=== PATIENT | male | born 1965 | race African-American/Black ===

== ENCOUNTER 2016-07-30 17:12 | Emergency (ER) | payer OTHER ==
[2016-07-30 17:32] VITALS: BMI 20.5
--- NOTE | 2016-07-30 18:06 | PDOC ---
History of Present Illness - History of Present Illness Initial Comments: 07/30/16 18:23 Patient is a 51 year old male with significant medical hx of ETOH/cocaine use who is presenting to the ED with nausea, vomiting, abdominal pain and weakness for four days. Four days ago the patient had 24 hours of nausea and vomiting; he reports that after awhile he began vomiting blood. Since then, his nausea and vomiting has resolved but he continued to have epigastric pain and generalized weakness. Today the patient was referred to Dr. Palafox by PCP and he was then referred to the ED for generalized weakness and abdominal pain. The patient is also complaining of sore throat. Denies fever, chill, changes in urination. <Edith Parsons - Last Filed: 07/31/16 00:01> <Wendy Ascencio - Last Filed: 07/31/16 00:27> - General Chief Complaint: Vomiting Blood Stated Complaint: VOMITTING Time Seen by Provider: 07/30/16 17:56 Past History <Edith Parsons - Last Filed: 07/31/16 00:01> - Past Medical History Anemia: No Asthma: No Cancer: No Cardiac Disorders: No CVA: No COPD: No CHF: No Dementia: No Diabetes: No GI Disorders: Yes (STOMACH ULCERS) Disorders: No HTN: No Hypercholesterolemia: No Kidney Stones: No Liver Disease: No Suicide Attempt (Hx): No Seizures: No Thyroid Disease: No Other medical history: HX OF DRUG ABUSE - Surgical History Abdominal Surgery: No Appendectomy: No Cardiac Surgery: No Cholecystectomy: No Lung Surgery: No Neurologic Surgery: No Orthopedic Surgery: No - Reproductive History Testicular Surgery: No - Psycho/Social/Smoking Cessation Hx Anxiety: No Suicidal Ideation: No Smoking History: Current every day smoker Have you smoked in the past 12 months: Yes Number of Cigarettes Smoked Daily: 10 Information on smoking cessation initiated: Yes 'Breaking Loose' booklet given: 07/30/16 Hx Alcohol Use: Yes (WEEKLY) Drug/Substance Use Hx: Yes (HX OF COCCAINE) Substance Use Type: Alcohol, Cocaine Hx Substance Use Treatment: Yes <Wendy Ascencio - Last Filed: 07/31/16 00:27> - Past Medical History Allergies/Adverse Reactions: Allergies Allergy/AdvReac Type Severity Reaction Status Date / Time No Known Allergies Allergy Verified 07/30/16 17:21 Home Medications: Ambulatory Orders Omeprazole 20 mg PO DAILY #20 capsule. 07/30/16 Pantoprazole Sodium [Protonix] 40 mg PO DAILY #10 tablet. 07/30/16 Abd/GI Specific PMHX - Complaint Specific PMHX Hepatitis: No Pancreatitis: No <Wendy Ascencio - Last Filed: 07/31/16 00:27> Review of Systems - Review of Systems Comments:: 07/30/16 18:24 CONSTITUTIONAL: Present: generalized weakness Absent: fever, chills, diaphoresis, malaise, loss of appetite HEENT: Absent: rhinorrhea, nasal congestion, throat pain, throat swelling, difficulty swallowing, mouth swelling, ear pain, eye pain, visual changes CARDIOVASCULAR: Absent: chest pain, syncope, palpitations, irregular heart rate, lightheadedness , peripheral edema RESPIRATORY: Absent: cough, shortness of breath, dyspnea with exertion, orthopnea, wheezing, stridor, hemoptysis GASTROINTESTINAL: Present: epigastric pain, nausea, vomiting (with blood) Absent: abdominal distension, diarrhea, constipation, melena, hematochezia GENITOURINARY: Absent: dysuria, frequency, urgency, hesitancy, hematuria, flank pain, genital pain MUSCULOSKELETAL: Absent: myalgia, arthralgia, joint swelling SKIN: Absent: rash, itching, pallor HEMATOLOGIC/IMMUNOLOGIC: Absent: easy bleeding, easy bruising, lymphadenopathy, frequent infections ENDOCRINE: Absent: unexplained weight gain, unexplained weight loss, heat intolerance, cold intolerance NEUROLOGIC: Absent: headache, focal weakness or paresthesia, dizziness, unsteady gait, seizure, mental status changes, bladder or bowel incontinence. PSYCHIATRIC: Absent: anxiety, depression, suicidal or homicidal ideation, hallucinations <Edith Parsons - Last Filed: 07/31/16 00:01> *Physical Exam - Vital Signs Last Vital Signs Temp Pulse Resp BP Pulse Ox 98.8 F 86 18 114/74 100 07/30/16 17:23 07/30/16 17:23 07/30/16 17:23 07/30/16 17:23 07/30/16 17:23 - Physical Exam Comments: 07/31/16 00:01 GENERAL: Well developed, well nourished. Awake and alert. No acute distress. HEENT: Normocephalic, atraumatic. PERRLA, EOMI. No conjunctival pallor. Sclera are non- icteric. Moist mucous membranes. Oropharynx is clear. NECK: Supple. Full ROM. No JVD. Carotid pulses 2+ and symmetric, without bruits. No thyromegaly. No lymphadenopathy. CARDIOVASCULAR: Regular rate and rhythm. No murmurs, rubs, or gallops. Distal pulses are 2+ and symmetric. PULMONARY: No evidence of respiratory distress. Lungs clear to auscultation bilaterally. No wheezing, rales or rhonchi. ABDOMINAL: Soft. Non-tender. Non-distended. No rebound or guarding. No organomegaly. Normoactive bowel sounds. MUSCULOSKELETAL: Normal range of motion at all joints. No bony deformities or tenderness. No CVA tenderness. EXTREMITIES: No cyanosis. No clubbing. No edema. No calf tenderness. SKIN: Warm and dry. Normal capillary refill. No rashes. No jaundice. NEUROLOGICAL: Alert, awake, appropriate. Cranial nerves 2-12 intact. Normal speech. Gait is normal without ataxia. PSYCHIATRIC: Cooperative. Good eye contact. Appropriate mood and affect. <Edith Parsons - Last Filed: 07/31/16 00:01> - Vital Signs Last Vital Signs Temp Pulse Resp BP Pulse Ox 98.8 F 86 18 114/74 100 07/30/16 17:23 07/30/16 17:23 07/30/16 17:23 07/30/16 17:23 07/30/16 17:23 <Wendy Ascencio - Last Filed: 07/31/16 00:27> ED Treatment Course - LABORATORY CBC & Chemistry Diagram: 07/30/16 19:15 07/30/16 19:15 - RADIOLOGY Radiograph Interpretation: 07/30/16 20:27 Chest X-Ray Impression: No significant interval change or acute lung disease is present. Reported By: Sang Geller MD <Edith Parsons - Last Filed: 07/31/16 00:01> - LABORATORY CBC & Chemistry Diagram: 07/30/16 19:15 07/30/16 19:15 <Wendy Ascencio - Last Filed: 07/31/16 00:27> Medical Decision Making - Medical Decision Making 07/30/16 20:25 51-year-old male with a history of gastritis and alcohol use referred in from Dr. Palafox for further evaluation. He's had hematemesis on Friday. He saw Dr. Morteza Reed today who referred him to Dr. Palafox. Patient's had no melena , no diarrhea, no fever. Benign abdominal exam. He had vomited blood 4 days ago and was dizzy and weak at that time. Patient has been scheduled for colonoscopy by rescheduling cancelled multiple times. He had an ultrasound done today in Dr. Morteza rodriguez's office. Social history every day smoker. Alcohol use. Family history no gastric neoplasm , Exam was benign. No guarding, no rebound, CBC was within normal limits. Total bili was in normal limits. Electrolytes were within normal limits. Patient has had no hematemesis during his observation period emergency department, patient received IV proton aches and will be discharged with Protonix. Impression patient to follow-up Dr. Palafox if he has any further symptoms. 07/31/16 00:26 <Wendy Ascencio - Last Filed: 07/31/16 00:27> *DC/Admit/Observation/Transfer - Attestations Scribe Attestion: 07/30/16 18:26 Documentation prepared by Edith Parsons, acting as medical resident for Wendy Ascencio MD. <Edith Parsons - Last Filed: 07/31/16 00:01> <Wendy Ascencio - Last Filed: 07/31/16 00:27> Diagnosis at time of Disposition: Alcohol dependence Qualifiers: Substance use status: unspecified alcohol-induced disorder Qualified Code(s): F10.29 - Alcohol dependence with unspecified alcohol-induced disorder Hematemesis Qualifiers: Nausea presence: unspecified Qualified Code(s): K92.0 - Hematemesis - Discharge Dispostion Disposition: HOME Condition at time of disposition: Stable - Prescriptions Prescriptions: Omeprazole 20 mg PO DAILY #20 capsule. Pantoprazole Sodium [Protonix] 40 mg PO DAILY #10 tablet.dr - Referrals Referrals: Morteza Reed MD [Primary Care Provider] - - Patient Instructions Printed Discharge Instructions: DI for Vomiting -- Adult, DI for Alcoholic Gastritis Additional Instructions: please shrimp picker your medications at your pharmacy If you have worsening symptoms return to the emergency department
[2016-07-30] MEDS ORDERED: ONDANSETRON 4 MG/2 ML VIAL IVPUSH ONE (18:08)
[2016-07-30] MEDS ORDERED: SODIUM CHLORIDE 1,000 ML IV STA (18:08)
[2016-07-30] MEDS ORDERED: PANTOPRAZOLE SODIUM 40 MG in SODIUM CHLORIDE 100 ML IVPB ONE (18:10)
[2016-07-30] MEDS ORDERED: PANTOPRAZOLE SODIUM 100 ML IVPB ONE (18:27)
[2016-07-30] MEDS ORDERED: ONDANSETRON 4 MG/2 ML VIAL ONE ×2 (18:28→19:21)
[2016-07-30 19:27] LABS: BASOPHIL 0.6 % (0-2.0); EOSINOPHIL 2.6 % (0-4.5); MCHC 32.9 g/dl (32.0-35.9); MEAN CELL VOLUME 97.1 fl (80-96); MEAN PLT VOLUME 8.7 fl (7.5-11.1); NEUTROPHILS 50.8 % (42.8-82.8); PLATELET COUNT 200 K/MM3 (134-434); RDW 13.5 % (11.9-15.9); WHITE BLOOD COUNT 4.2 K/mm3 (4.0-10.0)
[2016-07-30 19:38] LABS: INR 0.99 (0.82-1.09); PROTHROMBIN TIME (PATIENT) 10.9 SEC (9.98-11.88)
[2016-07-30 19:47] LABS: ALBUMIN 3.6 g/dl (3.4-5.0); ALK PHOS 59 U/L (45-117); ANION GAP 5 (8-16); BILIRUBIN,TOTAL 0.6 mg/dL (0.2-1.0); CALCIUM 8.8 mg/dL (8.5-10.1); CO2 28 mmol/L (21-32); CREATININE 0.9 mg/dL (0.7-1.3); GLUCOSE,RANDOM 95 mg/dL (74-106); SGOT/AST 52 U/L (15-37); SGPT/ALT 54 U/L (12-78); TOT PROT 6.7 g/dl (6.4-8.2)
[2016-07-30 19:48] VITALS: BP 131/76; PULSE 73; TEMP 98.1
[2016-07-30] MEDS ORDERED: ACETAMINOPHEN 325 MG TABLET (FP) PO ONE (20:11)
[2016-07-30] MEDS ORDERED: ACETAMINOPHEN 325 MG TABLET (FP) ONE (20:17)
== END 2016-07-30 20:34 | disposition home or self-care (01) ==
LOC: JER 17:12
PROC: 3E033GC Introduction of Other Therapeutic Substance into Peripheral Vein, Percutaneous Approach (ICD-10-PCS; principal; 2016-07-30)
DX: F10.20 Alcohol dependence, uncomplicated (principal); K92.0 Hematemesis
CPT/HCPCS: 36415; 71020-TC; 80053; 85025; 85610; 86850; 86900; 86901; 96365; 96375; 99282-25

== ENCOUNTER 2016-08-28 19:29 | Emergency (ER) | payer OTHER ==
[2016-08-28 19:51] VITALS: BP 147/89; PULSE 90; TEMP 98; BMI 20.4
[2016-08-29] MEDS ORDERED: IBUPROFEN 400 MG TABLET (FP) PO ONE ×2 (00:06→00:14)
[2016-08-29] MEDS ORDERED: traMADol HCL 50 MG TABLET PO ONE (00:06)
[2016-08-29] MEDS ORDERED: traMADol HCL 50 MG TABLET ONE (00:13)
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
== END 2016-08-29 01:09 | disposition home or self-care (01) ==
LOC: JER 19:29 → JERFT 19:29 → JER 08-29 01:09
DX: F07.81 Postconcussional syndrome (principal); S09.90XA Unspecified injury of head, initial encounter; F17.210 Nicotine dependence, cigarettes, uncomplicated; W18.39XA Other fall on same level, initial encounter; Y93.89 Activity, other specified; Y92.89 Other specified places as the place of occurrence of the external cause
CPT/HCPCS: 70450-TC; 73030-TC-RT; 99281-25

== ENCOUNTER 2021-04-28 09:25 | Inpatient (IN) | payer OTHER ==
[2021-04-28 10:01] VITALS: BMI 18.3
[2021-04-28] MEDS ORDERED: ACETAMINOPHEN 325 MG TABLET (FP) PO PRN (10:45)
[2021-04-28] MEDS ORDERED: BISMUTH SUBSALICYLATE 524 MG/30 ML PO PRN (10:45)
[2021-04-28] MEDS ORDERED: diazePAM 5 MG TABLET PO PRN (10:45)
[2021-04-28] MEDS ORDERED: MENTHOL/PHENOL 1 EACH UD MM PRN (10:45)
[2021-04-28] MEDS ORDERED: MAGNESIUM HYDROX 2400MG/30ML ORAL SUSPENSION 30 ML CUP PO PRN (10:45)
[2021-04-28] MEDS ORDERED: MAGNESIUM CITRATE 300 ML BOTTLE PO PRN (10:45)
[2021-04-28] MEDS ORDERED: NICOTINE POLACRILEX 2 MG GUM BUC PRN (10:45)
[2021-04-28] MEDS ORDERED: IBUPROFEN 400 MG TABLET (FP) PO PRN (10:45)
[2021-04-28] MEDS ORDERED: MAG HYDROX/AL HYDROX/SIMETH 30 ML UNIT-DOSE CUP PO PRN (10:45)
[2021-04-28] MEDS ORDERED: NICOTINE 10 MG CARTRIDGE (INHALER) IH PRN (10:45)
[2021-04-28] MEDS ORDERED: ONDANSETRON *ODT* 4 MG TABLET SL PRN (10:45)
[2021-04-28] MEDS: diazePAM 5 MG TABLET PO SCH ×3 (11:37→22:21)
[2021-04-28] MEDS ORDERED: hydrOXYzine PAMOATE 25 MG CAPSULE (FP) PO SCH (14:00)
[2021-04-28] MEDS ORDERED: IBUPROFEN 600 MG TABLET (FP) PO PRN (16:14)
[2021-04-28] MEDS: MELATONIN 5 MG TABLETS PO SCH (22:19)
[2021-04-28] MEDS: THIAMINE HCL 100 MG TABLET (FP) PO SCH (22:19)
[2021-04-29] MEDS: diazePAM 5 MG TABLET PO SCH ×4 (05:30→22:26)
[2021-04-29] MEDS: PRENATAL VITAMINS W/ FOLIC ACID TABLET (FP) PO SCH (10:48)
[2021-04-29] MEDS: NICOTINE 21 MG/24 HOURS TOPICAL PATCH TD SCH (10:49)
[2021-04-29 13:16] LABS: HEMATOCRIT 36.6 % (35.4-49); HEMOGLOBIN 12.4 GM/dL (11.7-16.9); MCH 34.2 pg (25.7-33.7); MCHC 33.9 g/dl (32.0-35.9); MEAN CELL VOLUME 100.7 fl (80-96); MEAN PLT VOLUME 8.6 fl (7.5-11.1); PLATELET COUNT 252 10^3/uL (134-434); RBC 3.64 M/mm3 (4.00-5.60); RDW 13.9 % (11.9-15.9); WHITE BLOOD COUNT 4.5 K/mm3 (4.0-10.0)
[2021-04-29 13:29] LABS: CALCIUM 8.6 mg/dL (8.5-10.1)
[2021-04-29 13:30] LABS: ALBUMIN 3.4 g/dl (3.4-5.0); BLOOD UREA NITROGEN 18.8 mg/dL (7-18)
[2021-04-29 13:33] LABS: CREATININE 1.2 mg/dL (0.55-1.3)
[2021-04-29 13:34] LABS: BILIRUBIN,TOTAL 0.6 mg/dL (0.2-1)
[2021-04-29 14:26] LABS: HIV INTERPRETATION NEGATIVE (NEGATIVE)
[2021-04-29] MEDS: ACETAMINOPHEN 325 MG TABLET (FP) PO PRN (22:25)
[2021-04-29] MEDS: THIAMINE HCL 100 MG TABLET (FP) PO SCH (22:26)
[2021-04-29] MEDS: MELATONIN 5 MG TABLETS PO SCH (22:26)
[2021-04-29] MEDS: hydrOXYzine PAMOATE 25 MG CAPSULE (FP) PO PRN (22:27)
[2021-04-29] MEDS: METHOCARBAMOL 500 MG TABLET PO PRN (22:28)
[2021-04-30] MEDS: diazePAM 5 MG TABLET PO SCH ×3 (05:33→22:12)
[2021-04-30] MEDS: hydrOXYzine PAMOATE 25 MG CAPSULE (FP) PO PRN (05:34)
[2021-04-30] MEDS: PRENATAL VITAMINS W/ FOLIC ACID TABLET (FP) PO SCH (10:26)
[2021-04-30] MEDS: NICOTINE 21 MG/24 HOURS TOPICAL PATCH TD SCH (10:26)
[2021-04-30] MEDS: MELATONIN 5 MG TABLETS PO SCH (22:11)
[2021-04-30] MEDS: THIAMINE HCL 100 MG TABLET (FP) PO SCH (22:11)
[2021-04-30] MEDS: ACETAMINOPHEN 325 MG TABLET (FP) PO PRN (22:13)
[2021-04-30] MEDS: METHOCARBAMOL 500 MG TABLET PO PRN (22:13)
[2021-05-01] MEDS: diazePAM 5 MG TABLET PO SCH ×2 (05:15→17:32)
[2021-05-01] MEDS: ACETAMINOPHEN 325 MG TABLET (FP) PO PRN ×2 (05:16→17:34)
[2021-05-01] MEDS: PRENATAL VITAMINS W/ FOLIC ACID TABLET (FP) PO SCH (10:16)
[2021-05-01] MEDS: NICOTINE 21 MG/24 HOURS TOPICAL PATCH TD SCH (10:16)
[2021-05-01 11:04] LABS: SGOT/AST 369 U/L (15-37); SGPT/ALT 551 U/L (13-61)
[2021-05-01 11:06] LABS: GLUCOSE,FASTING 102 mg/dL (74-106)
[2021-05-01] MEDS: THIAMINE HCL 100 MG TABLET (FP) PO SCH (22:26)
[2021-05-01] MEDS: MELATONIN 5 MG TABLETS PO SCH (22:26)
[2021-05-01] MEDS: hydrOXYzine PAMOATE 25 MG CAPSULE (FP) PO PRN (23:53)
[2021-05-02] MEDS ORDERED: diazePAM 5 MG TABLET PO ONE (06:00)
[2021-05-02 09:23] VITALS: BP 133/86; PULSE 99; TEMP 96.6
== END 2021-05-02 09:25 | disposition home or self-care (01) | DRG 774 ==
LOC: YASAS 09:25 → Y3N 10:44
PROVIDERS: ADMIT Allergy & Immunology; ATTEND Allergy & Immunology
PROC: HZ2ZZZZ Detoxification Services for Substance Abuse Treatment (ICD-10-PCS; principal; 2021-04-28)
DX: F10.230 Alcohol dependence with withdrawal, uncomplicated (principal); F14.20 Cocaine dependence, uncomplicated; F12.20 Cannabis dependence, uncomplicated; F17.210 Nicotine dependence, cigarettes, uncomplicated; E86.0 Dehydration; M54.50 Low back pain, unspecified; G89.29 Other chronic pain
CPT/HCPCS: 36415; 80053; 82947; 84450; 84460; 85027; 86780; 87389; C9803; U0003; U0005